=== PATIENT | female | born 1990 | race Two or more races ===

== ENCOUNTER 2019-03-10 21:40 | Emergency (ER) | payer BC ==
[~2019-03-10] VITALS: Ht 157.5 cm; Wt 68.0 kg
--- NOTE | 2019-03-10 22:26 | NUR ---
BIB FAMILY FOR C/O H/A, LIGHT HEADED NESS, NAUSEA AND VAGINAL BLEEDING . LMP: 02/08, + TESTS X 2 AT HOME.
[2019-03-10 22:39] LABS: APPEARANCE,URINE Clear (CLEAR); BILIRUBIN,URINE Negative (NEGATIVE); BLOOD, URINE Small Ery/uL (NEGATIVE); COLOR,URINE Yellow (YELLOW); KETONES,URINE Negative (NEGATIVE); LEUKOCYTE ESTERASE ,URINE Negative (NEGATIVE); NITRITE, URINE Negative (NEGATIVE); PH,URINE 6.5 (5.0-8.0); PROTEIN,URINE Negative (NEGATIVE); UGLUCOSE Negative (NEGATIVE); UROBILINOGEN,URINE 0.2 EU/dL (0.2)
[2019-03-10] MEDS ORDERED: ACETAMINOPHEN ES 500 MG TABLET ONE (22:42)
[2019-03-10 22:47] LABS: BASOPHILS # (AUTO) 0.1 /CMM (0.0-0.2); BASOPHILS % (AUTO) 0.6 % (0.0-2.0); EOSINOPHILS % (AUTO) 0.7 % (0.0-6.0); HEMATOCRIT 41 % (33-45); LYMPHOCYTES # (AUTO) 1.4 /CMM (0.8-4.8); LYMPHOCYTES % (AUTO) 16.7 % (20.0-44.0); MEAN CORPUSCULAR HGB CONC 34 g/dl (31.0-36.0); MEAN CORPUSCULAR VOLUME 95 fL (82-100); MONOCYTES # (AUTO) 0.5 /CMM (0.1-1.30); MONOCYTES % (AUTO) 6.2 % (2.0-12.0); NEUTROPHILS # (AUTO) 6.4 /CMM (1.8-8.9); NEUTROPHILS % (AUTO) 75.8 % (43.0-81.0); PLATELET COUNT (AUTO) 210 /CMM (150-450); RED BLOOD CELL COUNT(AUTO) 4.32 MIL/uL (4.0-5.2); WHITE BLOOD COUNT (AUTO) 8.5 K/uL (4.3-11.0)
[2019-03-10 22:54] LABS: CALCIUM, SERUM 8.9 mg/dL (8.5-10.1); CREATININE 0.8 mg/dL (0.6-1.3); POTASSIUM 4.2 mmol/L (3.5-5.1)
[2019-03-10] MEDS ORDERED: ACETAMINOPHEN ES 500 MG TABLET PO ONE (23:00)
[2019-03-10 23:13] LABS: SQUAMOUS EPITHELIAL CELL,UR Few /HPF (None Seen); WBC,URINE 0-2 /HPF (0-3)
[2019-03-10 23:14] LABS: BACTERIA,URINE Few /HPF (None Seen)
--- NOTE | 2019-03-10 23:50 | NUR ---
US TECH AT THE BED SIDE
[2019-03-10 23:52] VITALS: BP 114/62
--- NOTE | 2019-03-11 01:01 | NUR ---
pt was d/c'd in stable condition however she refused after care written instructions.
== END 2019-03-11 01:04 | disposition home or self-care (01) ==
LOC: ER 21:45
DX: O20.0 Threatened abortion (principal)
CPT/HCPCS: 36415; 76856; 80048; 81001; 84702; 85025; 99284; A6403; 81000-TC